=== PATIENT | female | born 2000 | race Caucasian/White ===

== ENCOUNTER 2025-07-20 11:17 | Emergency (ER) | payer OTHER, SELFPAY ==
[2025-07-20 11:31] VITALS: BP 133/89
[2025-07-20 11:51] LABS: Hematocrit 38.3 % (37.0-47.0); Hemoglobin 13.5 g/dL (12.0-16.0); Mean Corp Hgb Conc. 35.2 g/dL (33.0-37.0); Mean Corpuscular Volume 87.0 fL (81.0-99.0); Nucleated Red Blood Cells % 0 %; Platelet Count 264 10^3/uL (130-400); Red Cell Dist. Width 11.9 % (11.5-14.5)
[2025-07-20 12:09] LABS: ALT (SGPT) 24 U/L (0-35); AST (SGOT) 25 U/L (14-36); Acetaminophen < 10 ug/ml (10-30); Albumin 4.9 g/dl (3.5-5.0); Alkaline Phosphatase 37 U/L (38-126); Blood Urea Nitrogen 13 mg/dl (7-17); Calcium 9.7 mg/dl (8.4-10.2); Carbon Dioxide 22 mmol/L (22-30); Chloride 108 mmol/L (98-107); Glucose 92 mg/dl (70-99); Potassium 4.2 mmol/L (3.5-5.1); Salicylate < 1.0 mg/dl (2.0-20.0); Sodium 139 mmol/L (135-145); Total Protein 7.8 g/dl (6.3-8.2); eGFR > 60.00
[2025-07-20 12:10] LABS: HCG, Serum Qualitative Screen Negative
--- NOTE | 2025-07-20 13:02 | ED.GENMED ---
History of Present Illness
General
Chief Complaint: Crisis Evaluation
Source: patient and significant other
Exam Limitations: none
Time Seen by Provider: 07/20/25 12:37
Nursing documentation reviewed up to this point in time: agreed with
History of Present Illness
History of Present Illness:
25-year-old female with anxiety depression alcoholism and alcoholic Anonymous feeling more depressed recently psychiatrist switched her from Lexapro to Cymbalta, symptoms persisted got started on BuSpar few days ago over the weekend she had thoughts
of harming herself no alcohol recently, no ingestions, cooperative here with her significant other who is supportive
Past History
Past History
ED Past Medical History: Psychiatric
ED Past Surgical History: None
Social History
Living: with family
Phy Exam
Physical Exam
Physical Exam:
Physical Exam
General: no apparent distress, not acutely ill
Neck: No jaundice
Heart: s1/s2 regular rate and rhythm, no murmur. equal radial pulses.
Lungs: no acute respiratory distress. clear bilaterally
Neuro: alert and oriented. no focal neurological deficits
Skin: no rash
Psychiatric: Cooperative slightly tearful not hallucinating
Extremities: no edema
Course
Orders/Labs/Results
Orders:
Orders
07/20/25 11:39
Test Result ONCE
07/20/25 11:40
1:1 Observation - Suicide/ Violent Behavior As Directed
Crisis Consult Urgent
Reason for Consult: SI
07/20/25 11:43
Acetaminophen Urgent
CBC/With Diff [Complete Blood Count/With Diff] Urgent
CMP [Comprehensive Metabolic Panel] Urgent
Fentanyl, Urine Urgent
HCG, Serum Qualitative Screen Urgent
Salicylate Urgent
Urine Drug Abuse Screen Urgent
Date Specimen was Collected: 07/20/25
Time Specimen was Collected: 11:38
07/20/25 12:59
Alprazolam [Xanax] 0.25 mg PO NOW STA
Abnormal Lab Results
07/20/25
11:43
Chloride 108 H mmol/L
(98-107)
Alkaline Phosphatase 37 L U/L
(38-126)
Salicylates < 1.0 L mg/dl
(2.0-20.0)
Acetaminophen < 10 L ug/ml
(10-30)
07/20/25 11:43
07/20/25 11:43
Vital Signs
Initial and Last Documented VS:
Initial Vital Signs
Pulse
103
07/20/25 11:30
Last Documented Vital Signs
Temp Pulse Resp BP Pulse Ox
98.8 F 103 16 133/89 98
07/20/25 11:31 07/20/25 11:31 07/20/25 11:31 07/20/25 11:31 07/20/25 13:03
MDM/Problems Addressed
Differential Diagnosis Includes:
Depression anxiety substance abuse medication
MDM/Problems Addressed:
Depression anxiety substance abuse medication
Chronic conditions affecting care: Psychiatric illness
Acute Exacerbation and/or Progression of Chronic Illness: Psychiatric illness
*Pulse Oximetry
SaO2: 98
Oxygen Mode of Delivery: Room air
Patient hypoxic: no
*Critical Care Note
Total Time (30-74mins, 75-104mins- exclusive of procedures): Not Applicable
Update Note
Update Note:
4 PM reviewed the crisis patient [facility] for suicidal ideation anxiety
ED Attending Note
-
Portions of this chart may have been created with voice recognition software.� Occasional wrong word or��sound alike� substitutions may have occurred due to the inherent limitations of voice recognition software.
Discharge Plan
Departure
Patient Disposition: Psych Facility
Date of Disposition: 07/20/25
Time of Disposition: 16:07
Patient with high blood pressure during this ER visit?: No
Condition: Good
Discharge Problem:
Suicidal ideation
Referrals:
UNKNOWN - PT DOES,NOT KNOW [Family Provider]
Interventions
Interventions:
*Risk Screen - Suicide Last Done: 07/20/25 11:39
*General Assessment Last Done: 07/20/25 13:59
*Neglect/Abuse Screening Last Done: 07/20/25 13:59
*ED- Fall Risk Assessment Last Done: 07/20/25 13:59
*ED COVID-19 Vaccine History Last Done: 07/20/25 13:59
ED-Psychological Assessment Last Done: 07/20/25 14:04
Discharge Date and Time
Print Language: MEXICAN
[2025-07-20] MEDS: XANAX 0.25 MG PO (13:55)
[2025-07-20 14:03] VITALS: BMI 27.1
== END 2025-07-20 18:54 ==
LOC: EMR 11:17
PROVIDERS: Emergency Medicine; EMERGENCY PHYSICIAN Emergency Medicine
DX: R45.851 Suicidal ideations (principal); F41.9 Anxiety disorder, unspecified; F32.A Depression, unspecified
CPT/HCPCS: 99285; 80053; 80143; 80179; 80306; 80307; 84703; 85025